=== PATIENT | male | born 1975 | race Two or more races ===

== ENCOUNTER 2016-05-25 13:04 | Inpatient (IN) | payer OTHER ==
[2016-05-25 13:10] VITALS: BMI 28.7
--- NOTE | 2016-05-25 15:20 | HP ---
CIWA Score - CIWA Score Nausea/Vomitin-Int. Nausea w/Dry Heave Muscle Tremors: 3 Anxiety: 5 Agitation: 2 Paroxysmal Sweats: 4-Forehead w/Sweat Beads Orientation: 0-Oriented Tacttile Disturbances: 3-Moderate Itch/Numb/Burn Auditory Disturbances: 0-None Visual Disturbances: 0-None Headache: 0-None Present CIWA-Ar Total Score: 21 Admission ROS BHS - HPI Chief Complaint: DETOX TX FOR ALCOHOL DEPENDENCE Allergies/Adverse Reactions: Allergies Allergy/AdvReac Type Severity Reaction Status Date / Time penicillin G Allergy Severe Rash Verified 05/25/16 14:20 sertraline HCl [From Zoloft] Allergy Severe stiffness Verified 05/25/16 14:20 History of Present Illness: 40 Y/O TRANSGENDER MALE WITH A HX OF ALCOHOL, HEROIN, COCAINE AND MARIJUANA DEPENDENCE AND ON METHADONE MAINTENANCE SEEKING DETOX TX. Exam Limitations: No Limitations - Ebola screening Have you traveled outside of the country in the last 21 days: No (N) Have you had contact with anyone from an Ebola affected area: No Have you been sick,other than usual withdrawal symptoms: No Do you have a fever: No - Review of Systems Constitutional: Chills, Night Sweats, Changes in sleep EENT: reports: Blurred Vision (WEARS GLASSES), Tearing, Nose Congestion, Dental Problems (BILAERAL DENTURES) Respiratory: reports: Shortness of Breath (HX STHMA), Wheezing Cardiac: reports: Lightheadedness GI: reports: Constipated, Diarrhea, Nausea, Vomiting : reports: No Symptoms Reported Musculoskeletal: reports: Muscle Pain Integumentary: reports: Bruising (RIGHT LOWER LEG/RIGHT FOREARM IVD TRACKS-- SWELLING AND REDNESS.), Sweating Neuro: reports: Headache, Numbness, Tingling, Tremors, Unsteady Gait, Dizziness Endocrine: reports: No Symptoms Reported Hematology: reports: No Symptoms Reported Psychiatric: reports: Orientated x3, Anxious, Depressed Other Systems: Reviewed and Negative Patient History - Patient Medical History Hx Anemia: No Hx Asthma: Yes (MDI) Hx Chronic Obstructive Pulmonary Disease (COPD): No Hx Cardiac Disorders: No Hx Hypertension: No Hx Hypercholesterolemia: No HX Cerebrovascular Accident: No Hx Seizures: No Hx Diabetes: No Hx Gastrointestinal Disorders: No Hx Genitourinary Disorders: No Hx Sexually Transmitted Disorders: Yes (HERPES HX) Hx Renal Disease (ESRD): No Hx Thyroid Disease: No Hx Human Immunodeficiency Virus (HIV): Yes (SINCE 1991;AIDS SINCE 2002; ON MEDS) Hx Hepatitis C: Yes Hx Depression: Yes (NOT CURRENTLY ON MEDS) Hx Suicide Attempt: Yes (though of jumping off bridge in 2002;DENIES CURRENT IDEATIONS) Hx Bipolar Disorder: Yes Hx Schizophrenia: No - Patient Surgical History Past Surgical History: No Hx Neurologic Surgery: No Hx Cataract Extraction: No Hx Cardiac Surgery: No Hx Lung Surgery: No Hx Breast Surgery: No Hx Breast Biopsy: No Hx Abdominal Surgery: No Hx Appendectomy: No Hx Cholecystectomy: No Hx Genitourinary Surgery: No Hx Orthopedic Surgery: No Anesthesia Reaction: No - PPD History Previous Implant?: Yes Documented Results: Negative w/o proof Implanted On Prior [facility] Admission?: No PPD to be Administered?: Yes - Reproductive History Patient is a Female of Child Bearing Age (11 -55 yrs old): No (MALE TRANSGENDER) - Smoking Cessation Smoking history: Current every day smoker Have you smoked in the past 12 months: Yes Aproximately how many cigarettes per day: 10 Hx Chewing Tobacco Use: No Initiated information on smoking cessation: Yes 'Breaking Loose' booklet given: 05/25/16 - Substance & Tx. History Hx Alcohol Use: Yes (VODKA/4LOKO) Hx Substance Use: Yes (CRACK/HEROIN) Substance Use Type: Alcohol, Cocaine, Heroin Hx Substance Use Treatment: Yes (A.C.I. DETOX) - Substances Abused Crack Route: Smoking Frequency: 3-6 times per week Amount used: $150 Age of first use: 18 Date of Last Use: 05/25/16 Heroin Route: Injection Frequency: Daily Amount used: 7 bags Age of first use: 34 Date of Last Use: 06/01/16 Alcohol-4 lokos/vodka Route: Oral Frequency: Daily Amount used: 10-12 (32 oz.)/3 pts. Age of first use: 19 Date of Last Use: 05/24/16 Family Disease History - Family Disease History Family Disease History: Diabetes: Grandparent (GF-) Admission Physical Exam BHS - Vital Signs Vital Signs: Vital Signs - 24 hr 05/25/16 13:07 Temperature 97.2 F L Pulse Rate 96 H Respiratory 20 Rate Blood Pressure 116/82 - Physical General Appearance: Yes: Moderate Distress, Irritable, Anxious HEENTM: Yes: EOMI, Normocephalic, DES, Pharynx Normal Respiratory: Yes: Chest Non-Tender, Lungs Clear, Normal Breath Sounds, No Respiratory Distress Neck: Yes: No masses,lesions,Nodules, Supple, Trachea in good position Breast: Yes: Breast Exam Deferred Cardiology: Yes: Regular Rhythm, Regular Rate, S1, S2 Abdominal: Yes: Normal Bowel Sounds, Non Tender, Soft Genitourinary: Yes: Other (N/C) Back: Yes: Within Normal Limits Musculoskeletal: Yes: full range of Motion, Gait Steady Extremities: Yes: Normal Range of Motion, Non-Tender Neurological: Yes: cryptographer II-XII NML intact, Fully Oriented, Alert, Motor Strength 5/5 Integumentary: Yes: Warm, Diaphoresis, Track Torres (RIGHT LOWER LEG AND RIGHT FOREARM REDNESS AND SWELLING) Lymphatic: Yes: Within Normal Limits - Diagnostic (1) Alcohol dependence with uncomplicated withdrawal Current Visit: Yes Status: Acute (2) Cocaine dependence, uncomplicated Current Visit: Yes Status: Acute (3) Methadone maintenance therapy patient Current Visit: Yes Status: Chronic (4) History of asthma Current Visit: Yes Status: Chronic (5) Hx of AIDS Current Visit: Yes Status: Chronic (6) History of herpes genitalis Current Visit: Yes Status: Inactive (7) History of hepatitis C Current Visit: Yes Status: Chronic Comment: NO TREATMENT YET PER PATIENT. Cleared for Admission [facility] - Detox or Rehab [facility] Level of Care: Medically Managed Detox Regimen/Protocol: Librium [facility] Breath Alcohol Content Breath Alcohol Content: 0 Urine Drug Screen - Results Drug Screen Negative: No Urine Drug Screen Results: OMNSTER-Cocaine, OPI-Opiates, MTD-Methadone, OXY- Oxycodone
[2016-05-25] MEDS ORDERED: MAG HYDROX/AL HYDROX/SIMETH 30 ML UNIT-DOSE CUP PO PRN (15:32)
[2016-05-25] MEDS ORDERED: LOPERAMIDE HCL 2 MG CAPSULE PO PRN (15:32)
[2016-05-25] MEDS ORDERED: MAGNESIUM HYDROX 2400MG/30ML ORAL SUSPENSION 30 ML CUP PO PRN (15:32)
[2016-05-25] MEDS ORDERED: ACETAMINOPHEN 325 MG TABLET (FP) PO PRN (15:32)
[2016-05-25] MEDS ORDERED: chlordiazePOXIDE HCL 25 MG CAPSULE PO PRN (15:32)
[2016-05-25] MEDS ORDERED: diphenhydrAMINE HCL 50 MG CAPSULE PO PRN (15:32)
[2016-05-25] MEDS ORDERED: guaiFENesin/D-METHORPHAN HB 10 ML UNIT-DOSE CUPS PO PRN (15:32)
[2016-05-25] MEDS ORDERED: IBUPROFEN 400 MG TABLET (FP) PO PRN (15:32)
[2016-05-25] MEDS ORDERED: MAGNESIUM CITRATE 300 ML BOTTLE PO PRN (15:32)
[2016-05-25] MEDS ORDERED: NICOTINE POLACRILEX 2 MG GUM BC PRN (15:32)
[2016-05-25] MEDS ORDERED: hydrOXYzine PAMOATE 25 MG CAPSULE (FP) PO PRN (15:32)
[2016-05-25] MEDS ORDERED: P-EPHED 60MG/TRIPROLIDI 2.5MG TABLET PO PRN (15:32)
[2016-05-25] MEDS ORDERED: ALBUTEROL SO4 6.7 GM HFA INHALER IH PRN (15:35)
[2016-05-25] MEDS ORDERED: METHADONE HCL 10 MG TABLET PO ONE (15:39)
[2016-05-25] MEDS ORDERED: METHADONE 40 MG, METHADONE 20 MG PO ONE (15:49)
[2016-05-25] MEDS ORDERED: METHADONE HCL 40 MG DISPERSABLE TABLET ONE (17:22)
[2016-05-25] MEDS ORDERED: METHADONE HCL 10 MG TABLET ONE (17:22)
[2016-05-25] MEDS: EMTRICITABINE 200MG/TENOFOVIR 300MG PO SCH (18:51)
[2016-05-25] MEDS: chlordiazePOXIDE HCL 25 MG CAPSULE PO SCH ×2 (18:51→22:39)
[2016-05-25] MEDS: ETRAVIRINE 200 MG TABLET PO SCH (18:52)
[2016-05-25] MEDS: NICOTINE 14 MG/24 HOURS TOPICAL PATCH TD SCH (18:58)
[2016-05-25 19:22] LABS: URINE APPEARANCE CLEAR; URINE BILIRUBIN NEGATIVE (NEGATIVE); URINE COLOR AMBER; URINE GLUCOSE (UA) NEGATIVE (NEGATIVE); URINE KETONE NEGATIVE (NEGATIVE); URINE LEUK ESTERASE NEGATIVE (NEGATIVE); URINE NITRITE NEGATIVE (NEGATIVE); URINE UROBILINOGEN 4.0 E.U/dl E.U./dl (0.2-1.0)
[2016-05-25 19:24] LABS: URINE BLOOD 1+ (NEGATIVE); URINE PROTEIN 3+ (NEGATIVE)
[2016-05-25 19:28] LABS: URINE HYALINE CAST 11 /lpf; URINE MUCUS FEW; URINE RBC 5 /hpf (0-3); URINE WBC 1 /hpf (3-5)
[2016-05-25] MEDS: PATIENT'S OWN MEDICATION (NON-FORMULARY) (Dolutegravir Sodium 50 MG) PO SCH (22:39)
[2016-05-25] MEDS: THIAMINE HCL 100 MG TABLET (FP) PO SCH (22:39)
[2016-05-26] MEDS ORDERED: METHADONE HCL 40 MG DISPERSABLE TABLET ONE (04:49)
[2016-05-26] MEDS ORDERED: METHADONE HCL 10 MG TABLET ONE (04:49)
[2016-05-26] MEDS: chlordiazePOXIDE HCL 25 MG CAPSULE PO SCH ×4 (05:47→22:46)
[2016-05-26] MEDS ORDERED: METHADONE 40 MG, METHADONE 30 MG PO ONE (06:00)
[2016-05-26] MEDS ORDERED: METHADONE HCL 10 MG TABLET PO SCH ×2 (06:00)
[2016-05-26 10:14] LABS: MCH 29.5 pg (25.7-33.7); MCHC 34.1 g/dl (32.0-35.9); MEAN CELL VOLUME 86.7 fl (80-96); MEAN PLT VOLUME 10.4 fl (7.5-11.1); PLATELET COUNT 121 K/MM3 (134-434); RDW 15.2 % (11.9-15.9); WHITE BLOOD COUNT 3.9 K/mm3 (4.0-10.0)
[2016-05-26 10:21] LABS: SGOT/AST 128 U/L (15-37)
[2016-05-26 10:25] LABS: ALBUMIN 4.2 g/dl (3.4-5.0); ALK PHOS 125 U/L (45-117); ANION GAP 11 (8-16); BILIRUBIN,TOTAL 0.6 mg/dL (0.2-1.0); CO2 22 mmol/L (21-32); CREATININE 1.1 mg/dL (0.7-1.3); GLUCOSE,RANDOM 98 mg/dL (74-106); SGPT/ALT 94 U/L (12-78); TOT PROT 8.8 g/dl (6.4-8.2)
--- NOTE | 2016-05-26 10:39 | CONSULT ---
[facility] Psychiatric Consult - Data Date of interview: 05/26/16 Admission source: [facility] Identifying data: This is 40 years old male with psychiatric hospitalization history intoixicated with: Opioids, Alcohol Crack and Nicotine Substance Abuse History: - Smoking Cessation. Smoking history: Current every day smoker. Have you smoked in the past 12 months: Yes. Aproximately how many cigarettes per day: 10. Hx Chewing Tobacco Use: No. Initiated information on smoking cessation: Yes. 'Breaking Loose' booklet given: 05/25/16. - Substance & Tx. History. Hx Alcohol Use: Yes (VODKA/4LOKO). Hx Substance Use: Yes (CRACK /HEROIN). Substance Use Type: Alcohol, Cocaine, Heroin. Hx Substance Use Treatment: Yes (A.C.I. DETOX). - Substances Abused. Crack. Route: Smoking. Frequency: 3-6 times per week. Amount used: $150. Age of first use: 18. Date of Last Use: 05/25/16. Heroin. Route: Injection. Frequency: Daily. Amount used: 7 bags. Age of first use: 34. Date of Last Use: . Alcohol-4 lokos/vodka. Route: Oral. Frequency: Daily. Amount used: 10 -12 (32 oz.)/3 pts. Age of first use: 19. Date of Last Use: 05/24/16 Medical History: Asthma, MMTP 670mg/day, AIDS, HepC+ Psychiatric History: pPatoient reports only psychiatric admission on 2002 at [facility] after Suicidal attempt due to depressed mood, reports no suicidal history since then, no medications taking prior to admission. As per computer history of Bipolar disorder Physical/Sexual Abuse/Trauma History: Denies Additional Comment: Observation. Detox Care Protocol Mental Status Exam - Mental Status Exam Alert and Oriented to: Person Cognitive Function: Fair Patient Appearance: Unkempt Mood: Apprehensive Affect: Mood Congruent Patient Behavior: Cooperative Speech Pattern: Appropriate Voice Loudness: Mildly Soft/Quiet Thought Process: Goal Oriented Thought Disorder: Being Controlled Hallucinations: Denies Suicidal Ideation: Denies Homicidal Ideation: Denies Insight/Judgement: Fair Sleep: Difficulty falling asleep Appetite: Weight gain Muscle strength/Tone: Normal Gait/Station: Normal Additional Comments: Observation. Detox Care Protocol Psychiatric Findings - Problem List ([place] 1, 2,3) (1) Alcohol dependence with uncomplicated withdrawal Current Visit: Yes Status: Acute (2) Cocaine dependence, uncomplicated Current Visit: Yes Status: Acute (3) Methadone maintenance therapy patient Current Visit: Yes Status: Chronic (4) Nicotine dependence Current Visit: Yes Status: Acute (5) Drug-induced mood disorder Current Visit: Yes Status: Acute - Initial Treatment Plan Initial Treatment Plan: Observation. Detox Care Protocol
[2016-05-26] MEDS: PRENATAL VITAMINS W/ FOLIC ACID TABLET (FP) PO SCH (10:51)
[2016-05-26] MEDS: PATIENT'S OWN MEDICATION (NON-FORMULARY) (Dolutegravir Sodium 50 MG) PO SCH ×2 (10:52→22:46)
[2016-05-26] MEDS: EMTRICITABINE 200MG/TENOFOVIR 300MG PO SCH (10:52)
[2016-05-26] MEDS: ETRAVIRINE 200 MG TABLET PO SCH ×2 (10:52→18:32)
[2016-05-26] MEDS: NICOTINE 14 MG/24 HOURS TOPICAL PATCH TD SCH (10:53)
[2016-05-26] MEDS: PSYLLIUM 5.85 GM PACKET PO SCH ×2 (11:30→22:47)
--- NOTE | 2016-05-26 12:56 | PN ---
[facility] CIWA - CIWA Score Nausea/Vomitin-Int. Nausea w/Dry Heave Muscle Tremors: 4-Moderate,w/Arms Extend Anxiety: 3 Agitation: 2 Paroxysmal Sweats: 3 Orientation: 0-Oriented Tacttile Disturbances: 2-Mild Itch/Numbness/Burn Auditory Disturbances: 2-Mild Harshness/Frighten Visual Disturbances: 0-None Headache: 0-None Present CIWA-Ar Total Score: 20 S Progress Note (SOAP) Subjective: Body aches, Interrupted sleep, Stomach Cramps, Sweating, Tremors, Constipation. Objective: PT. A & O X 3, OBSERVED AMBULATING ON UNIT. 05/26/16 12:54 Vital Signs Temperature 97.7 F 05/26/16 09:55 Pulse Rate 65 05/26/16 09:55 Respiratory Rate 16 05/26/16 09:55 Blood Pressure 108/66 05/26/16 09:55 O2 Sat by Pulse Oximetry (%) Laboratory Last Values WBC 3.9 K/mm3 (4.0-10.0) L 05/26/16 06:00 RBC 4.65 M/mm3 (4.00-5.60) 05/26/16 06:00 Hgb 13.7 GM/dL (11.7-16.9) 05/26/16 06:00 Hct 40.3 % (35.4-49) 05/26/16 06:00 MCV 86.7 fl (80-96) 05/26/16 06:00 MCHC 34.1 g/dl (32.0-35.9) 05/26/16 06:00 RDW 15.2 % (11.9-15.9) 05/26/16 06:00 Plt Count 121 K/MM3 (134-434) L 05/26/16 06:00 MPV 10.4 fl (7.5-11.1) 05/26/16 06:00 Sodium 139 mmol/L (136-145) 05/26/16 06:00 Potassium 3.5 mmol/L (3.5-5.1) 05/26/16 06:00 Chloride 106 mmol/L (98-107) 05/26/16 06:00 Carbon Dioxide 22 mmol/L (21-32) 05/26/16 06:00 Anion Gap 11 (8-16) 05/26/16 06:00 BUN 18 mg/dL (7-18) 05/26/16 06:00 Creatinine 1.1 mg/dL (0.7-1.3) 05/26/16 06:00 Creat Clearance w eGFR > 60 (>60) 05/26/16 06:00 Random Glucose 98 mg/dL (74-106) 05/26/16 06:00 Calcium 9.0 mg/dL (8.5-10.1) 05/26/16 06:00 Total Bilirubin 0.6 mg/dL (0.2-1.0) 05/26/16 06:00 AST 128 U/L (15-37) H 05/26/16 06:00 ALT 94 U/L (12-78) H 05/26/16 06:00 Alkaline Phosphatase 125 U/L (45-117) H 05/26/16 06:00 Total Protein 8.8 g/dl (6.4-8.2) H 05/26/16 06:00 Albumin 4.2 g/dl (3.4-5.0) 05/26/16 06:00 Urine Color Chel 05/25/16 15:32 Urine Appearance Clear 05/25/16 15:32 Urine pH 5.0 (5.0-8.0) 05/25/16 15:32 Ur Specific Solen 1.030 (1.001-1.035) 05/25/16 15:32 Urine Protein 3+ (NEGATIVE) H 05/25/16 15:32 Urine Glucose (UA) Negative (NEGATIVE) 05/25/16 15:32 Urine Ketones Negative (NEGATIVE) 05/25/16 15:32 Urine Blood 1+ (NEGATIVE) H 05/25/16 15:32 Urine Nitrite Negative (NEGATIVE) 05/25/16 15:32 Urine Bilirubin Negative (NEGATIVE) 05/25/16 15:32 Urine Urobilinogen 4.0 e.u/dl E.U./dl (0.2-1.0) 05/25/16 15:32 Ur Leukocyte Esterase Negative (NEGATIVE) 05/25/16 15:32 Urine RBC 5 /hpf (0-3) 05/25/16 15:32 Urine WBC 1 /hpf (3-5) 05/25/16 15:32 Ur Epithelial Cells Rare /hpf (FEW) 05/25/16 15:32 Hyaline Casts 11 /lpf 05/25/16 15:32 Urine Mucus Few 05/25/16 15:32 RPR Titer Nonreactive (NONREACTIVE) 05/26/16 06:00 LABS NOTED. Assessment: 05/26/16 12:55 WITHDRAWAL SYMPTOMS. Plan: CONTINUE DETOX. METAMUCIL BID FOR CONSTIPATION. ADVISED PT. TO FOLLOW-UP WITH [facility] / REHAB MEDICAL PROVIDER AFTER DISCHARGE FROM DETOX FOR GENERAL MEDICAL ASSESSMENT AND ABNORMAL LAB VALUES.
--- NOTE | 2016-05-26 14:16 | EKG ---
Test Reason : Blood Pressure : / mmHG Vent. Rate : 064 BPM Atrial Rate : 064 BPM P-R Int : 152 ms QRS Dur : 092 ms QT Int : 456 ms P-R-T Axes : 009 031 047 degrees QTc Int : 470 ms NORMAL SINUS RHYTHM NORMAL ECG NO PREVIOUS ECGS AVAILABLE Confirmed by NIA SENIOR MD ([id number]) on 05/26/2016 2:16:16 PM Referred By: Wesley Alfaro Confirmed By:NIA SENIOR MD
[2016-05-26] MEDS: THIAMINE HCL 100 MG TABLET (FP) PO SCH (22:47)
[2016-05-27] MEDS ORDERED: METHADONE HCL 40 MG DISPERSABLE TABLET PO ONE (06:00)
[2016-05-27] MEDS ORDERED: METHADONE HCL 10 MG TABLET PO SCH (06:00)
[2016-05-27] MEDS: chlordiazePOXIDE HCL 25 MG CAPSULE PO SCH ×2 (06:10→10:42)
[2016-05-27] MEDS: MENTHOL/PHENOL 1 EACH UD MM PRN ×3 (09:31→22:51)
[2016-05-27] MEDS: PSYLLIUM 5.85 GM PACKET PO SCH ×2 (10:42→22:49)
[2016-05-27] MEDS: NICOTINE 14 MG/24 HOURS TOPICAL PATCH TD SCH (10:42)
[2016-05-27] MEDS: PRENATAL VITAMINS W/ FOLIC ACID TABLET (FP) PO SCH (10:42)
[2016-05-27] MEDS: PATIENT'S OWN MEDICATION (NON-FORMULARY) (Dolutegravir Sodium 50 MG) PO SCH ×2 (10:42→22:50)
[2016-05-27] MEDS: EMTRICITABINE 200MG/TENOFOVIR 300MG PO SCH (10:42)
[2016-05-27] MEDS: ETRAVIRINE 200 MG TABLET PO SCH ×2 (10:42→17:29)
--- NOTE | 2016-05-27 11:02 | PN ---
S CIWA - CIWA Score Nausea/Vomitin-No Nausea/No Vomiting Muscle Tremors: 4-Moderate,w/Arms Extend Anxiety: 3 Agitation: 4-Moderately Restless Paroxysmal Sweats: 3 Orientation: 0-Oriented Tacttile Disturbances: 0-None Auditory Disturbances: 0-None Visual Disturbances: 0-None Headache: 0-None Present CIWA-Ar Total Score: 14 BHS Progress Note (SOAP) Subjective: sweats interrupted sleep constipation body aches agitation Objective: 05/27/16 11:00 Vital Signs Temperature 98.1 F 05/27/16 10:17 Pulse Rate 66 05/27/16 10:17 Respiratory Rate 18 05/27/16 10:17 Blood Pressure 110/76 05/27/16 10:17 O2 Sat by Pulse Oximetry (%) Laboratory Tests 05/25/16 05/26/16 05/26/16 15:32 06:00 06:00 WBC 3.9 L RBC 4.65 Hgb 13.7 Hct 40.3 MCV 86.7 MCHC 34.1 RDW 15.2 Plt Count 121 L MPV 10.4 Sodium 139 Potassium 3.5 Chloride 106 Carbon Dioxide 22 Anion Gap 11 BUN 18 Creatinine 1.1 Creat Clearance w eGFR > 60 Random Glucose 98 Calcium 9.0 Total Bilirubin 0.6 AST 128 H ALT 94 H Alkaline Phosphatase 125 H Total Protein 8.8 H Albumin 4.2 Urine Color Chel Urine Appearance Clear Urine pH 5.0 Ur Specific [place] 1.030 Urine Protein 3+ H Urine Glucose (UA) Negative Urine Ketones Negative Urine Blood 1+ H Urine Nitrite Negative Urine Bilirubin Negative Urine Urobilinogen 4.0 e.u/dl Ur Leukocyte Esterase Negative Urine RBC 5 Urine WBC 1 Ur Epithelial Cells Rare Hyaline Casts 11 Urine Mucus Few RPR Titer 05/26/16 06:00 WBC RBC Hgb Hct MCV MCHC RDW Plt Count MPV Sodium Potassium Chloride Carbon Dioxide Anion Gap BUN Creatinine Creat Clearance w eGFR Random Glucose Calcium Total Bilirubin AST ALT Alkaline Phosphatase Total Protein Albumin Urine Color Urine Appearance Urine pH Ur Specific Rufus Urine Protein Urine Glucose (UA) Urine Ketones Urine Blood Urine Nitrite Urine Bilirubin Urine Urobilinogen Ur Leukocyte Esterase Urine RBC Urine WBC Ur Epithelial Cells Hyaline Casts Urine Mucus RPR Titer Nonreactive awake/alert ambulating no acute distress Assessment: 05/27/16 11:01 withdrawal sx Plan: continue detox increase fluids continue metamucil
[2016-05-27] MEDS: chlordiazePOXIDE 5 MG CAPSULE PO SCH ×2 (17:28→22:51)
[2016-05-27] MEDS: THIAMINE HCL 100 MG TABLET (FP) PO SCH (22:51)
[2016-05-28] MEDS ORDERED: METHADONE HCL 10 MG TABLET ONE (05:11)
[2016-05-28] MEDS ORDERED: METHADONE HCL 40 MG DISPERSABLE TABLET ONE (05:11)
[2016-05-28] MEDS: METHADONE 80 MG, METHADONE 10 MG PO SCH (05:55)
[2016-05-28] MEDS: chlordiazePOXIDE 5 MG CAPSULE PO SCH ×2 (05:56→10:55)
[2016-05-28] MEDS ORDERED: METHADONE HCL 10 MG TABLET PO SCH (06:00)
[2016-05-28] MEDS: ETRAVIRINE 200 MG TABLET PO SCH ×2 (10:00→22:52)
[2016-05-28] MEDS: EMTRICITABINE 200MG/TENOFOVIR 300MG PO SCH (10:54)
[2016-05-28] MEDS: PRENATAL VITAMINS W/ FOLIC ACID TABLET (FP) PO SCH (10:54)
[2016-05-28] MEDS: PATIENT'S OWN MEDICATION (NON-FORMULARY) (Dolutegravir Sodium 50 MG) PO SCH ×2 (10:54→22:51)
[2016-05-28] MEDS: PSYLLIUM 5.85 GM PACKET PO SCH ×2 (10:58→22:51)
[2016-05-28] MEDS: NICOTINE 14 MG/24 HOURS TOPICAL PATCH TD SCH (10:58)
[2016-05-28] MEDS: MENTHOL/PHENOL 1 EACH UD MM PRN (10:59)
--- NOTE | 2016-05-28 13:31 | PN ---
S Progress Note (SOAP) Subjective: ALERT,IRRITABLE,ANXIOUS,INTERRUPTED SLEEP Objective: 05/28/16 13:31 Vital Signs Temperature 97.9 F 05/28/16 10:31 Pulse Rate 68 05/28/16 10:31 Respiratory Rate 18 05/28/16 10:31 Blood Pressure 110/65 05/28/16 10:31 O2 Sat by Pulse Oximetry (%) Assessment: 05/28/16 13:31 WITHDRAWAL SYMPTOM Plan: CONTINUE DETOX,DISCHARGE IN AM
[2016-05-28] MEDS: chlordiazePOXIDE HCL 10 MG CAPSULE PO SCH ×2 (17:47→22:51)
[2016-05-28 18:36] VITALS: TEMP 98.1
[2016-05-28] MEDS: THIAMINE HCL 100 MG TABLET (FP) PO SCH (22:51)
[2016-05-29] MEDS ORDERED: METHADONE HCL 10 MG TABLET ONE (04:54)
[2016-05-29] MEDS ORDERED: METHADONE HCL 40 MG DISPERSABLE TABLET ONE (04:55)
[2016-05-29] MEDS: chlordiazePOXIDE HCL 10 MG CAPSULE PO SCH (05:45)
[2016-05-29] MEDS: METHADONE 80 MG, METHADONE 10 MG PO SCH (05:45)
[2016-05-29 07:03] VITALS: BP 114/65; PULSE 71
--- NOTE | 2016-05-29 08:27 | DS ---
[facility] Detox Discharge Summary Admission Date: 05/25/16 Discharge Date: 05/29/16 - History Present History: Alcohol Dependence, Cocaine Dependence Additional Comments: FOLLOW UP WITH AFTER [facility] AND PMD FOR MEDICAL PROBLEM Pertinent Past History: ASTHMA AIDS HEPATITIS C GENITAL HERPES HISTORY - Physical Exam Results Vital Signs: Vital Signs Temperature 98.1 F 05/29/16 07:02 Pulse Rate 71 05/29/16 07:02 Respiratory Rate 16 05/29/16 07:02 Blood Pressure 114/65 05/29/16 07:02 O2 Sat by Pulse Oximetry (%) Pertinent Admission Physical Exam Findings: WITHDRAWAL SYMPTOM - Treatment Hospital Course: Detox Protocol Followed, Detoxed Safely, Responded well, Discharged Condition Good, Rehab Referral Accepted Patient has Accepted a Rehab Referral to: [facility] - Medication Discharge Medications: Ambulatory Orders Albuterol Sulfate Inhaler - [Ventolin Hfa Inhaler -] 2 inh PO Q4H PRN 05/25/16 Dolutegravir Sodium [Tivicay] 50 mg PO BID 05/25/16 Emtricitabine/Tenofovir [Truvada] 1 tab PO DAILY 05/25/16 Etravirine [Intelence -] 200 mg PO BID 05/25/16 - AMA Did Patient Leave Against Medical Advice: No
== END 2016-05-29 07:20 | disposition other institution (70) | DRG 773 ==
LOC: YASAS 13:04 → Y6N 15:08
PROVIDERS: ADMIT Internal Medicine Addiction Medicine; ATTEND Internal Medicine Addiction Medicine
PROC: HZ2ZZZZ Detoxification Services for Substance Abuse Treatment (ICD-10-PCS; principal; 2016-05-29)
DX: F11.20 Opioid dependence, uncomplicated (principal); F10.230 Alcohol dependence with withdrawal, uncomplicated; F14.20 Cocaine dependence, uncomplicated; F19.24 Other psychoactive substance dependence with psychoactive substance-induced mood disorder; F17.210 Nicotine dependence, cigarettes, uncomplicated; F32.9 Major depressive disorder, single episode, unspecified; B18.2 Chronic viral hepatitis C; Z21 Asymptomatic human immunodeficiency virus [HIV] infection status; A60.00 Herpesviral infection of urogenital system, unspecified
CPT/HCPCS: 36415; 80053; 81003; 81015; 85027; 86593; 93005; 93010